=== PATIENT | male | born 1970 | race African-American/Black ===

== ENCOUNTER 2020-11-24 00:01 | Emergency (ER) | payer OTHER ==
[~2020-11-24] VITALS: Ht 180.3 cm; Wt 99.8 kg
[2020-11-24] MEDS ORDERED: IBUPROFEN 100 MG/5 ML SUSP PO ONE (02:00)
[2020-11-24] MEDS ORDERED: IBUPROFEN 400 MG TAB PO ONE (02:00)
[2020-11-24] MEDS ORDERED: IBUPROFEN 400 MG TAB ONE (02:04)
[2020-11-24] MEDS ORDERED: NAPROSYN500 MG PO (02:21)
[2020-11-24] MEDS ORDERED: CYCLOBENZAPRINE10 MG PO (02:21)
[2020-11-24] MEDS ORDERED: TYLENOL # 31 EA PO (02:24)
== END 2020-11-24 02:36 | disposition home or self-care (01) ==
LOC: FSED 00:19
DX: S13.4XXA Sprain of ligaments of cervical spine, initial encounter (principal); V43.62XA Car passenger injured in collision with other type car in traffic accident, initial encounter; Y92.488 Other paved roadways as the place of occurrence of the external cause; I10 Essential (primary) hypertension
CPT/HCPCS: 99282